=== PATIENT | male | born 1995 | race Caucasian/White ===

== ENCOUNTER 2021-07-27 06:15 | Emergency (ER) | payer OTHER, SELFPAY ==
[2021-07-27 06:16] VITALS: PULSE 56; RESP 18; TEMP 35.5; O2SAT 98; BMI 32.8
--- NOTE | 2021-07-27 06:45 | EDS_ITS ---
HPI History of Present Illness Chief Complaint: Abd Pain Informant: patient Onset/Context/Timing Onset: Today Context: Sudden Onset Timing: Continuous Quality: Similar to prior kidney stones Location: Right flank and right lower quadrant Current Severity: Severe Maximum Severity: Severe Worsened by: Nothing Relieved by: Nothing Narrative Narrative: Patient presents with right flank and right lower quadrant abdominal pain that began today. Patient states the pain woke him up approximately 3 hours prior to arrival. Patient states the pain has been constant. Patient states it feels similar to prior kidney stones. Patient states it is on the right side in the right lower quadrant and right flank area. Patient states nothing makes it worse and nothing makes it better. Patient denies any dysuria or hematuria. Patient denies any patient does admit to some nausea and vomiting. [facility] Medical History (Updated 07/27/21 @ 08:[address] Ruperto Fortune DO) History of kidney stones Medical History no medical history Home Medications hydrocodone-acetaminophen 1 tab PO Q6H PRN PRN 3 Days #10 tablet 07/27/21 [Rx Last Taken Unknown] tamsulosin 0.4 mg PO DAILY #7 capsule 07/27/21 [Rx Last Taken Unknown] Allergy/AdvReac Type Severity Reaction Status Date / Time No Known Allergies Allergy Verified 07/27/21 06:19 Surgical History no surgical history no surgical history Social History Smoking Status: Never smoker ROS ROS ED Constitutional Constitutional ED: Denies chills or fever(s) Eyes Eyes: Denies blurry vision or change in vision ENT ENT ED: Denies rhinorrhea or sore throat Cardiovascular Cardiovascular: Denies chest pain or palpitations Respiratory/Chest Respiratory/Chest: Denies cough or dyspnea Gastrointestinal Gastrointestinal: Reports abdominal pain, nausea and vomiting Genitourinary Genitourinary ED: Denies dysuria or hematuria Musculoskeletal Musculoskeletal: Reports back pain; Denies neck pain Integumentary Denies abscess or rash Neurologic Neurologic: Denies headache(s) or weakness Allergic/Immunologic Allergic/Immunologic ED: Denies mouth swelling or urticaria EXAM Physical Exam Const Vital Signs: 07/27/21 06:16 Temperature 96 F L Temperature Source Temporal Pulse Rate 56 L Respiratory Rate 18 Pulse Ox 98 Oxygen Delivery Method Room Air Positive well nourished and well developed General Appearance ED: well developed HEENT Reports moist mucous membranes Neck supple and no JVD Resp normal respiratory effort and clear to auscultation bilaterally Cardio regular rate, regular rhythm and no murmurs GI normal to inspection, nondistended, normoactive bowel sounds Palpation: soft and tender RLQ; Negative for guarding or rebound tenderness present Back/Spine General Back: CVA tenderness right Extremity normal to inspection General Extremety ED: Negative for edema or tenderness General Extremity: Negative for edema Neuro oriented x3, CN's II-XII intact bilaterally and no sensory deficits noted Sensorium / Orientation: alert Motor Exam: strength 5/5 throughout Psych mental status grossly normal Skin no rashes or lesions noted MDM MDM MDM Narrative Medical decision making narrative: Patient was given IV fluids, Toradol, morphine, and Zofran. CT scan of the abdomen pelvis was obtained. There is a 2 mm calculus at the right ureterovesicular junction with mild hydronephrosis. There are bilateral nonobstructive renal stones. This was interpreted by the radiologist and reviewed by myself. CBC shows a slight leukocytosis of 13.0. Basic metabolic profile was within normal limits. Urinalysis does not show any evidence of urinary tract infection. Patient was advised of his findings. Patient was given a repeat dose of morphine here. Patient was given a prescription for [place] and Flomax. Patient was instructed to plenty fluids. Josiah arroyo was instructed to follow-up with his primary care physician in 5 to 7 days. Patient was also given referral for urology. Patient understood and was agreeable with the plan. All questions were answered. Lab Data Attestation: I reviewed the patient's lab results. Labs: Laboratory Results - last 24 hr 07/27/21 07/27/21 07/27/21 06:29 06:29 06:55 WBC 13.0 H RBC 5.08 Hgb 15.4 Hct 44.7 MCV 88.0 MCH 30.3 MCHC 34.5 RDW Std Deviation 37.5 RDW Coeff of Gonzalez 11.7 Plt Count 315 MPV 10.4 Immature Gran % (Auto) 0.300 Neut % (Auto) 39.7 L Lymph % (Auto) 43.5 H [place] % (Auto) 9.9 Eos % (Auto) 6.2 H Baso % (Auto) 0.4 Absolute Neuts (auto) 5.1 Absolute Lymphs (auto) 5.65 H Nucleated RBC % 0 Atypical Lymphocytes 1+ Sodium 139 Potassium 3.6 Chloride 106 Carbon Dioxide 24.0 Anion Gap 9 BUN 20 H Creatinine 1.27 Estim Creat Clear Calc 98.74 Est GFR (MDRD) Af Amer 87 Est GFR (MDRD) Non-Af 72 BUN/Creatinine Ratio 15.7 Glucose 135 H Calcium 8.9 Urine Color Yellow Urine Clarity Sl. Cloudy Urine pH 5.0 Ur Specific [place] 1.030 Urine Protein 30 H Urine Glucose (UA) Normal Urine Ketones 5 H Urine Occult Blood Negative Urine Nitrite Negative Urine Bilirubin Negative Urine Urobilinogen Normal Ur Leukocyte Esterase 25 H Urine RBC 0 SEEN Urine WBC 0-5 SEEN Ur Squamous Epith Cells 0-5 SEEN Urine Bacteria 1+ Urine Mucus 0 SEEN Radiography Diagnostic Testing: Clinical Impression(s) from Imaging Studies Abdomen/Pelvis CT 07/27/21 07:08 IMPRESSION: 2 mm right ureterovesical junction stone with mild hydronephrosis. Additional bilateral nonobstructive renal stones. Individualized dose optimization techniques were used for this CT. at 0754 Reported and signed by: Shane Foley MD Electronically Signed: Shane Foley MD at 7:52 EDT Tel , Service support , Discharge Plan Triage Chief Complaint: Abd Pain ED Provider: Ruperto Fortune Dx/Rx/DC Orders Clinical Impression: Right distal ureteral calculus Instructions: ED Kidney Stone w/ Colic Prescriptions: New hydrocodone-acetaminophen [hydrocodone-acetaminophen] 1 TABLET tablet 1 tab PO Q6H PRN PRN (Reason: Pain) 3 Days Qty: 10 RF: 0 tamsulosin [tamsulosin] 0.4 MG capsule 0.4 mg PO DAILY Qty: 7 RF: 0 Primary Care Provider: Care Physician,No Primary Referrals: Feliciano Crystal MD [STAFF PHYSICIAN] - 3-5 Days Caleb Emdonds MD [STAFF PHYSICIAN] - 3-5 Days Care Physician,No Primary [Primary Care Provider] - Disposition Disposition: Home, Self Care
[2021-07-27] MEDS: Ondansetron 4 MG/2 ML Vial IV ×2 (06:50→08:28)
[2021-07-27] MEDS: Ketorolac 30 MG/ML Syringe IV (06:50)
[2021-07-27] MEDS: Morphine 2 MG/ML Syringe IV (06:50)
[2021-07-27] MEDS: 0.9% Normal Saline 1,000 ML 250 ML IV (06:55)
[2021-07-27 07:00] LABS: Mucous, Urine 0 SEEN /hpf (<or=2+); Red Blood Cells-Urine 0 SEEN /hpf (0-5)
[2021-07-27 07:01] LABS: Absolute Lymphocyte Count 5.65 X10^3/uL (0.83-4.51); Absolute Neutrophil Count 5.1 X10^3/uL (2.0-7.7); Basophil# 0.05 X10^3/uL; Basophil% 0.4 % (0-1); Eosinophil# 0.81 X10^3/uL; Eosinophils% 6.2 % (0-5); Hematocrit 44.7 % (40-54); Hemoglobin 15.4 g/dL (13.0-16.5); Lymphocyte # 5.65 X10^3/ul (0.83-4.51); Lymphocyte % 43.5 % (19-41); Mean Corp Hgb Conc 34.5 g/dL (32-36); Mean Corpuscular Hgb 30.3 pg (27.0-32.0); Mean Platelet Vol. 10.4 fl (6.2-12.0); Monocyte# 1.29 X10^3/uL; Monocyte% 9.9 % (0-10); NRBC Flagged by Analyzer 0 % (0-5); Neutrophil # 5.14 X10^3/uL (2.7-7.7); Neutrophil % 39.7 % (47-70); POSITIVE DIFFERENTIAL YES; Platelet Count 315 K/mm3 (150-450); RBC Distribution Width CV 11.7 % (11.6-14.6); RBC Distribution Width SD 37.5 fl (35.1-43.9); Red Blood Count 5.08 M/mm3 (4.6-6.2)
[2021-07-27 07:03] LABS: Differential Indicated SCAN CRITERIA MET
--- NOTE | 2021-07-27 07:08 | CT_ITS ---
HISTORY: Pain TECHNIQUE: Multiple axial images were obtained of the abdomen and pelvis without oral or IV contrast. Coronal and sagittal reformats obtained. A radiation dose optimization technique was used for this scan. COMPARISON: None FINDINGS: # of images incl. paperwork: [phone] LUNG BASES: Unremarkable. LIVER T BILIARY TRACT: Unremarkable gallbladder. No acute hepatic finding. ADRENAL GLANDS: Unremarkable. SPLEEN: Unremarkable. PANCREAS: Unremarkable. KIDNEYS/URETERS/BLADDER: 2 mm right uterovesical junction stone with mild hydronephrosis and perinephric periureteral inflammatory stranding. Additional punctate bilateral renal nonobstructive stones. Unremarkable left ureter and bladder. Unremarkable noncontrast renal cortex. LYMPH NODES: No suspicious adenopathy. STOMACH, SMALL AND LARGE BOWEL: No acute gastric finding. No small bowel obstruction or gross wall thickening. Normal appendix. No acute colonic finding. ASCITES/FREE AIR: No free fluid or free air. AORTA: Unremarkable. PELVIS: Unremarkable. MUSCULOSKELETAL: No acute osseous finding. Fat-containing umbilical hernia without inflammation. CT/Abdomen/Pelvis without Cont IMPRESSION: 2 mm right ureterovesical junction stone with mild hydronephrosis. Additional bilateral nonobstructive renal stones. Individualized dose optimization techniques were used for this CT. at 0754 Reported and signed by: Shane Foley MD Electronically Signed: Shane Foley MD at 7:52 EDT Tel , Service support ,
[2021-07-27 07:10] LABS: Anion Gap 9 (5-15); BUN 20 mg/dL (7-18); BUN/Creat Ratio 15.7 RATIO (10-20); Calcium,Total 8.9 mg/dL (8.5-10.1); Chloride 106 mmol/L (98-107); Creatinine, Serum 1.27 mg/dL (0.70-1.30); EST Glomerular Filtration Rate 72 mL/min (>60); Est Glom Filt Rate - Afr Amer 87 mL/min (>60); Estimated Creatinine Clearance 98.74 ml/min; Glucose 135 mg/dL (74-106); Potassium 3.6 mmol/L (3.5-5.1); Sodium Level 139 mmol/L (136-145)
[2021-07-27 07:13] LABS: Atypical Lymphocyte 1+ %
[2021-07-27 07:14] LABS: Color, Urine Yellow (Yellow); Glucose, Dipstick Normal (Normal); Ketone-Dipstick 5 mg/dl (Negative); Leukocyte Esterase-Dipstick 25 /ul (Negative); Nitrite-Dipstick Negative (Negative); Occult Blood-Urine Negative /ul (Negative); Protein-Dipstick 30 mg/dl (Negative); Urine Bilirubin Dipstick Negative (Negative); Urine Clarity Sl. Cloudy (Clear); Urine Urobilinogen Normal (Normal)
[2021-07-27 07:21] LABS: Bacteria 1+ /hpf (None Seen); Squamous Epithelial Cells - UA 0-5 SEEN /hpf (0-5); White Blood Cells 0-5 SEEN /hpf (0-5)
[2021-07-27] MEDS: Morphine 4 MG/ML Syringe IV (08:21)
[2021-07-27 08:49] VITALS: BP 190/105; PULSE 68; RESP 16; O2SAT 98
== END 2021-07-27 08:50 | disposition home or self-care (01) ==
PROVIDERS: Emergency Provider Emergency Medicine
DX: N13.2 Hydronephrosis with renal and ureteral calculous obstruction (principal); Z87.442 Personal history of urinary calculi
CPT/HCPCS: 74176; 80048; 81001; 85025; 96361; 96374; 96375; 96376; 99284; J7030; A4216; J2405